=== PATIENT | female | born 1955 | race Caucasian/White ===

== ENCOUNTER 2017-09-22 11:17 | Day surgery (SDC) | payer MEDICAID ==
[2017-09-22] VITALS (9 sets, daily range): BP systolic 101–188; BP diastolic 46–99
[~2017-09-22] VITALS: Ht 165.1 cm; Wt 106.2 kg
[2017-09-22] MEDS ORDERED: dextrose ORAL solution 15 GM/59 ML bottle PO PRN ×2 (12:05)
[2017-09-22] MEDS ORDERED: normal saline 1000ml 1,000 ML IV SCH (12:05)
[2017-09-22] MEDS ORDERED: diphenhydrAMINE 25mg capsule PO PRN (12:05)
[2017-09-22] MEDS ORDERED: glucagon, human recombinant 1mg kit SUBCUT PRN (12:05)
[2017-09-22] MEDS ORDERED: LORazepam 0.5 MG tablet PO PRN (12:05)
[2017-09-22] MEDS ORDERED: insulin Lispro (HumaLOG) vial - multi-dose SQ SCH (12:05)
[2017-09-22] MEDS ORDERED: nitroGLYCERIN 0.4mg SUBLingual tab SL PRN (12:05)
[2017-09-22] MEDS ORDERED: dextrose 50%-water 50ml dispensing syringe IV PRN ×2 (12:05)
[2017-09-22] MEDS ORDERED: MESSAGE TO PHARMACY PO ONE (12:05)
[2017-09-22 12:19] LABS: BASOPHILS % (AUTO) 0.4 % (0-1); EOSINOPHILS # (AUTO) 0.1 X10'3 (0-0.9); EOSINOPHILS % (AUTO) 1.3 % (0-6); HEMATOCRIT 33.3 % (35.0-45.0); HEMOGLOBIN 11.2 g/dl (12.0-16.0); LYMPHOCYTES # (AUTO) 1.9 X10'3 (1.1-4.8); LYMPHOCYTES % (AUTO) 23.3 % (21-51); MEAN CORPUSCULAR HEMOGLOBIN 28.1 PG (27.0-31.0); MEAN CORPUSCULAR HGB CONC 33.7 % (33.0-36.5); MEAN CORPUSCULAR VOLUME 83.4 FL (78-98); MEAN PLATELET VOLUME 7.9 FL (7.4-10.4); MONOCYTES # (AUTO) 0.5 X10'3 (0-0.9); MONOCYTES % (AUTO) 6.2 % (2-12); NEUTROPHILS # (AUTO) 5.6 X10'3 (1.8-7.7); NEUTROPHILS % (AUTO) 68.8 % (42-75); PLATELET COUNT 236 X10'3 (140-440); RED BLOOD COUNT 3.99 X10'6 (4.20-5.60); RED CELL DISTRIBUTION WIDTH 14.1 % (11.5-14.5); WHITE BLOOD COUNT 8.2 X10'3 (4.5-11.0)
[2017-09-22] MEDS ORDERED: GABA600T2 PO (12:22)
[2017-09-22] MEDS ORDERED: ATOR40TA PO (12:22)
[2017-09-22] MEDS ORDERED: TRAM50TA2 PO (12:22)
[2017-09-22] MEDS ORDERED: TRAZ-143 PO (12:22)
[2017-09-22] MEDS ORDERED: AMLO10TA PO (12:22)
[2017-09-22] MEDS ORDERED: FURO80TA87 PO (12:22)
[2017-09-22] MEDS ORDERED: ISOS30TA9 PO (12:22)
[2017-09-22] MEDS ORDERED: EMPA10TA PO (12:22)
[2017-09-22] MEDS ORDERED: LISI-600 PO (12:22)
[2017-09-22] MEDS ORDERED: CYCL-394 PO (12:22)
[2017-09-22] MEDS ORDERED: INSU100I31 SQ (12:22)
[2017-09-22] MEDS ORDERED: OXYB5TAB11 PO (12:22)
[2017-09-22 12:30] LABS: ALBUMIN 3.3 G/DL (3.4-5.0); ANION GAP 13 (8-16); BLOOD UREA NITROGEN 41 MG/DL (7-18); BUN/CREATININE RATIO 17.2 (6.6-38.0); CALCIUM 9.2 MG/DL (8.5-10.1); CHLORIDE 109 MMOL/L (99-107); CREATININE 2.38 MG/DL (0.40-0.90); GLUCOSE 163 MG/DL (70-104); PARTIAL THROMBOPLASTIN TIME 24 SECONDS (22-32); POTASSIUM 4.3 MMOL/L (3.5-5.1); PROTHROMBIN TIME 10.2 SECONDS (9.0-12.0); SODIUM 143 MMOL/L (135-145); TOTAL CARBON DIOXIDE 21.1 MMOL/L (24-32); eGFR 21 ML/MIN
[2017-09-22 12:50] LABS: HEMOGLOBIN A1C 7.1 % (4.5-6.2)
[2017-09-22] MEDS ORDERED: heparin 1,000unit/ml 10ml vial 10 ML ONE (14:28)
[2017-09-22] MEDS ORDERED: nitroGLYCERIN-Tridil 50MG/D5W 250 ML IV ONE (14:28)
[2017-09-22] MEDS ORDERED: iohexol 350MG/ML 100ml bottle IV ONE ×2 (14:28→14:29)
[2017-09-22] MEDS ORDERED: iohexol 350 MG/ML 50ML vial IV ONE ×2 (14:28→14:29)
[2017-09-22] MEDS ORDERED: LIDOcaine 1% w/EPI 1:100,000 30ml vial (MDV) ONE ×2 (14:28→14:29)
[2017-09-22] MEDS ORDERED: fentaNYL/PF 50MCG/1 ML 2ML syringe ONE ×2 (14:29)
[2017-09-22] MEDS ORDERED: midazolam 2 mg/2 ml injection ONE ×3 (14:29→15:02)
[2017-09-22] MEDS ORDERED: insulin glargine (Lantus) pen - multi-dose SQ SCH (21:00)
== END 2017-09-22 20:45 | disposition home or self-care (01) ==
LOC: SSTAY O 11:17
PROVIDERS: ATTEND Internal Medicine Cardiovascular Disease
DX: I25.10 Atherosclerotic heart disease of native coronary artery without angina pectoris (principal); E11.22 Type 2 diabetes mellitus with diabetic chronic kidney disease; I12.9 Hypertensive chronic kidney disease with stage 1 through stage 4 chronic kidney disease, or unspecified chronic kidney disease; N18.4 Chronic kidney disease, stage 4 (severe); J44.9 Chronic obstructive pulmonary disease, unspecified; Z86.79 Personal history of other diseases of the circulatory system; Z79.891 Long term (current) use of opiate analgesic; Z86.73 Personal history of transient ischemic attack (TIA), and cerebral infarction without residual deficits; Z79.4 Long term (current) use of insulin; Z79.899 Other long term (current) drug therapy
CPT/HCPCS: 36415; 71046; 80048; 82948; 83036; 85025; 85610; 85730; 93005; 93458; 99152; 99153; A6257; C1760; C1769; J1644; J2250; J3010; J3490; J7030; Q0163; Q9967; A4620; J1815